=== PATIENT | male | born 1950 | race Caucasian/White ===

== ENCOUNTER 2018-03-25 16:02 | Inpatient (IN) | payer OTHER, MEDICARE ==
[~2018-03-25] VITALS: Ht 175.3 cm; Wt 76.2 kg
[2018-03-25 20:30] VITALS: BP 142/73
--- NOTE | 2018-03-25 20:30 | NUR ---
COLLATOR OPERATOR ADMITTING NOTES DIRECT ADMIT FROM EWING. RECEIVED PATIENT VIA GURNEY ACCOMPANIED AND TRANSFERRED TO BED BY 2 ROOM SERVICE RUNNER. PATIENT IS AWAKE ,ALERT AND ORIENTED X4, RESPIRATIONS EVEN AND UNLABORED, WITH EQUAL RISE AND FALL OF CHEST, ON COLLECTION TELLER SR AT 67. REGULAR. REYES CATHETER 18 FR. INTACT AND DRAINING WELL, URINE YELLOW IN COLOR. SKIN ASSESSED NOTED WITH RIGHT FOREHEAD LACERATION WITH SUTURES, NOSE AND SCALP SCAB, LEFT KNEE DISCOLORATION AND SACRAL REDNESS, PICTURES TAKEN PLACED IN CHART, RIGHT LACERATION SITE CLEANSED WITH NORMAL SALINE, DRY DRESSING APPLIED, NOTED SCANT SEROSANGUINEOUS TO SITE, NEW DRESSING REMAINS CLEAN AND INTACT. PATIENT IS NPO STATUS UPON ADMISSION. IV SITE TO LEFT WRIST #20 INTACT AND PATIENT, NO REDNESS, NO INFILTRATION PRESENT, MD AWARE OF ADMISSION WITH NEW ORDERS NOTED AND CARRIED OUT. PATIENT DENIES ANY COMPLAINT OF PAIN OF DISCOMFORT AT THIS TIME, SKIN CARE PROVIDED, BELONGINGS LIST DONE, PLACED IN GOWN, ORIENTED TO STAFF, AND CALL LIGHT, CALL LIGHT KEPT WITHIN REACH, SAFETY PRECAUTIONS MEASURED, WILL CONTINUE TO MONITOR, ALL NEEDS ATTENDED AT THIS TIME.
[2018-03-25] MEDS ORDERED: IV NS 0.9% 1,000 ML IV SCH (22:00)
[2018-03-25] MEDS ORDERED: ACETAMINOPHEN 650 MG/SUPP.RECT RC PRN (22:00)
[2018-03-25] MEDS ORDERED: ONDANSETRON HCL/PF 4 MG/2 ML VIAL IVP PRN (22:00)
[2018-03-25] MEDS ORDERED: MORPHINE SULFATE INJ 2 MG/ML DISP.SYRIN IV PRN (22:00)
[2018-03-25 22:39] LABS: BASOPHILS % (AUTO) 0.2 % (0.0-2.0); EOSINOPHILS % (AUTO) 2.3 % (0.0-6.0); HEMATOCRIT 48 % (39-51); HEMOGLOBIN 15.4 g/dL (13.5-17.5); LYMPHOCYTES # (AUTO) 0.9 /CMM (0.8-4.8); LYMPHOCYTES % (AUTO) 4.1 % (20.0-44.0); MEAN CORPUSCULAR HEMOGLOBIN 24 PG (26.0-33.0); MEAN CORPUSCULAR HGB CONC 32 g/dl (31.0-36.0); MEAN CORPUSCULAR VOLUME 74 fL (80-96); MONOCYTES # (AUTO) 0.5 /CMM (0.1-1.30); MONOCYTES % (AUTO) 2.4 % (2.0-12.0); NEUTROPHILS # (AUTO) 19.2 /CMM (1.8-8.9); PLATELET COUNT (AUTO) 868 /CMM (150-450); RED BLOOD CELL COUNT(AUTO) 6.51 MIL/uL (4.5-6.0); WHITE BLOOD COUNT (AUTO) 21.1 K/uL (4.3-11.0)
[2018-03-25 22:52] LABS: CALCIUM, SERUM 8.1 mg/dL (8.5-10.1); CREATININE 0.7 mg/dL (0.6-1.3)
[2018-03-25 22:58] LABS: ALBUMIN 3.5 g/dL (3.4-5.0); BILIRUBIN,TOTAL 1.2 mg/dL (0.2-1.0); PHOSPHORUS 3.1 mg/dL (2.5-4.9); TOTAL PROTEIN, SERUM 6.7 g/dL (6.4-8.2)
[2018-03-25 23:09] LABS: BAND % (MANUAL) 4 % (0.0-5.0); LYMPHOCYTES % (MANUAL) 4 % (16-48); NEUTROPHILS % (MANUAL) 88 (42-76)
[2018-03-25 23:10] LABS: MONOCYTES % (MANUAL) 4 % (0-11.0)
[2018-03-25 23:15] LABS: MAGNESIUM 1.2 mg/dL (1.8-2.4)
[2018-03-26] VITALS (7 sets, daily range): BP systolic 114–137; BP diastolic 64–81
[2018-03-26] MEDS ORDERED: PIPERACILLIN /TAZOBACTAM 3.375 G in IV D5W 50 ML IV SCH ×2
[2018-03-26] MEDS ORDERED: PIPERACILLIN /TAZOBACTAM 3.375 G VIAL IV ONE (00:31)
[2018-03-26] MEDS: Magnesium 1GM/D5W 100ML PREMIX 100 ML IV SCH ×4 (02:06→05:53)
[2018-03-26 03:03] LABS: APPEARANCE,URINE TURBID (CLEAR); BILIRUBIN,URINE 1+ (NEGATIVE); BLOOD, URINE 3+ Ery/uL (NEGATIVE); COLOR,URINE YELLOW (YELLOW); KETONES,URINE TRACE (NEGATIVE); LEUKOCYTE ESTERASE ,URINE TRACE (NEGATIVE); NITRITE, URINE NEGATIVE (NEGATIVE); PROTEIN,URINE 2+ mg/dl (NEGATIVE); UGLUCOSE NEGATIVE (NEGATIVE); UROBILINOGEN,URINE 0.2 EU/dL (0.2)
[2018-03-26 03:35] LABS: BACTERIA,URINE Few /HPF (None Seen); SQUAMOUS EPITHELIAL CELL,UR Rare /HPF (None Seen); URINE AMORPHOUS URATE Many /HPF (None Seen)
--- NOTE | 2018-03-26 06:31 | NUR ---
REPAIR ARMATURE WINDER CLOSING NOTES PATIENT IN BED AWAKE ALERT AND VERBALLY RESPONSIVE, RESPIRATIONS EVEN AND UNLABORED. WITH EQUAL RISE AND FALL OF CHEST. DENIES ANY COMPLAINTS OF PAIN OR DISCOMFORT AT THIS, LAST BAG OF MAG REPLACEMENT #4 RUNNING ORDERED. IV SITE TO LEFT WRIST INTACT AND PATENT, NO REDNESS, NO INFILTRATION PRESENT, REYES CATHETER INTACT AND DRAINING, ON CLEAR LIQUID DIET, FLUIDS OFFERED TOLERATED. ALL NEEDS ATTENDED AT THIS TIME, PATIENT REMAINS COMFORTABLE, SAFETY PRECAUTIONS RENDERED, ASKED PATIENT FOR SPUTUM COLLECTION , PER PATIENT HE DOES NOT HAVE ANY PHLEM. WILL CONTINUE TO MONITOR AND ENDORSE TO NEXT SHIFT.
[2018-03-26 07:36] LABS: CREATININE 0.9 mg/dL (0.6-1.3); MAGNESIUM 2.4 mg/dL (1.8-2.4); PHOSPHORUS 2.8 mg/dL (2.5-4.9); POTASSIUM 3.6 mmol/L (3.5-5.1)
[2018-03-26 07:46] LABS: BASOPHILS # (AUTO) 0.1 /CMM (0.0-0.2); BASOPHILS % (AUTO) 0.7 % (0.0-2.0); EOSINOPHILS % (AUTO) 4.2 % (0.0-6.0); HEMATOCRIT 50 % (39-51); HEMOGLOBIN 15.5 g/dL (13.5-17.5); LYMPHOCYTES # (AUTO) 1.3 /CMM (0.8-4.8); LYMPHOCYTES % (AUTO) 6.9 % (20.0-44.0); MEAN CORPUSCULAR HEMOGLOBIN 23 PG (26.0-33.0); MEAN CORPUSCULAR HGB CONC 31 g/dl (31.0-36.0); MEAN CORPUSCULAR VOLUME 74 fL (80-96); MONOCYTES # (AUTO) 0.5 /CMM (0.1-1.30); MONOCYTES % (AUTO) 2.8 % (2.0-12.0); NEUTROPHILS # (AUTO) 15.6 /CMM (1.8-8.9); NEUTROPHILS % (AUTO) 85.4 % (43.0-81.0); PLATELET COUNT (AUTO) 709 /CMM (150-450); RDW COEFFICIENT OF VARIATION 21.4 (11.5-15.0); RED BLOOD CELL COUNT(AUTO) 6.77 MIL/uL (4.5-6.0); WHITE BLOOD COUNT (AUTO) 18.3 K/uL (4.3-11.0)
[2018-03-26 07:52] LABS: THYROID STIMULATING HORMONE 2.739 uIU/mL (0.358-3.74)
--- NOTE | 2018-03-26 08:00 | NUR ---
RN NOTES PATIENT IN BED RESTING . PATIENT ALERT, ORIENTED X3 NO SOB OR ACUTE DISTRESS NOTED. BED IN LOW LOCKED POSITION. CALL LIGHT WITHIN REACH. PATIENT WITH REYES CATH INTACT PATENT AND PERIPHERAL IV ON LEFT WRIST INTACT PATIENT. WILL CONTINUE TO MONITOR.
--- NOTE | 2018-03-26 08:38 | NUR ---
WOUND CARE CONSULT: PT PRESENTS WITH SUTURED LACERATION TO FOREHEAD AND DRY ABRASION TO NOSE. RECOMMENDATIONS MADE FOR SKIN PROTECTION. PT INDEPENDENT WITH BED MOBILITY. AMY NOTED. WILL SEE PRN. BOYD IN AGREEMENT WITH PLAN OF CARE. Addendum: 03/26/18 at 0839 by YESIKA BLOUNT WNDNU Amended: Links added.
[2018-03-26] MEDS ORDERED: PANTOPRAZOLE 40 MG VIAL IV SCH (09:00)
[2018-03-26] MEDS ORDERED: PANTOPRAZOLE 40 MG TABLET.DR PO SCH ×2 (09:00→17:00)
[2018-03-26] MEDS ORDERED: TAMSULOSIN 0.4 MG CAP.SR.24H PO SCH (10:00)
[2018-03-26] MEDS ORDERED: CARV6.25 PO (10:07)
[2018-03-26] MEDS ORDERED: LORA-258 PO (10:07)
[2018-03-26] MEDS ORDERED: FURO-145 PO (10:07)
[2018-03-26] MEDS ORDERED: PANT40TA4 PO (10:11)
[2018-03-26] MEDS ORDERED: LISI2.5T2 PO (10:11)
[2018-03-26] MEDS ORDERED: ASPI-1169 PO (10:11)
[2018-03-26 11:08] LABS: EOSINOPHILS % (MANUAL) 7 % (0-4); LYMPHOCYTES % (MANUAL) 7 % (16-48); MONOCYTES % (MANUAL) 4 % (0-11.0); NEUTROPHILS % (MANUAL) 82 (42-76)
[2018-03-26] MEDS ORDERED: PIPERACILLIN /TAZOBACTAM 4.5 G in IV NS 0.9% 50 ML IV SCH (12:00)
[2018-03-26] MEDS: PIPERACILLIN /TAZOBACTAM 3.375 G in IV D5W 50 ML IV SCH ×3 (13:14→23:09)
--- NOTE | 2018-03-26 13:50 | NUR ---
BUSINESS SUPPORT ASSISTANT NOTES PATIENT NOTED WITH ANOTHER EPISODE OF V TAC. PATIENT STATES HE FELT HIS HEART BEATING FAST. PATIENT ALERT, ORIENTEDX3. DENIES ANY PAIN. HERIBERTO AYOUB NOTIFIED, AT BEDSIDE EVALUATING PATIENT. WILL CONTINUE TO MONITOR. Addendum: 03/26/18 at 1452 by DANIAL BOJORQUEZ RN ERROR IN CHARTING. WRONG PATIENT
--- NOTE | 2018-03-26 13:55 | NUR ---
SLURRY CONTROL TENDER NOTES ORDERS TO TRANSFER PATIENT TO ICU WITH AMIODARONE DRIP. PATIENT WITH VS WNL. NO SOB OR ACUTE DISTRESS NOTED. PATIENT ALERT, ORIENTED X3. AT BEDSIDE. REPORT GIVEN TO YESSICA MURPHY AT BEDSIDE AT ICU PATIENT TRANSFERRED TO ROOM 257. Addendum: 03/26/18 at 1452 by DANIAL BOJORQUEZ RN ERROR IN CHARTING WRONG PATIENT.
--- NOTE | 2018-03-26 15:10 | NUR ---
Social service consult requested by BA Pearl for ETOH abuse. Pt. is a 67 year old male who was admitted to [facility] for sepsis. SW met with pt. bedside. Pt. is alert and oriented x 4. Pt. was pleasant and cooperative with SW during the assessment. Pt. lives with his mother at [address] [place] [address], [place] [address]. Pt. is an alcohol and drinks approximately 1 to 2 bottles of vodka per day. Pt. has been drinking for the past 30 years. Pt. has been sober in the past for 10 years. Pt. attended an alcohol treatment program at [facility] on [address] in [place] about a year ago but did not complete due to the program being too strict for him. Pt. states, he had to take 5 one hour classes in the morning and and 5 one hour classes in the evening. Pt. felt it was too much to handle. SW offered pt. alcohol treatment program referrals, however pt. declined stating he doesn't want to go back to rehab and he is knowledgeable about alcohol resources. SW encouraged pt. to go to treatment. Pt receives $900/ month in SSI. No other social service needs are requested at this time. SW is available, if needed.
[2018-03-26] MEDS ORDERED: LORAZEPAM 0.5 MG TABLET PO PRN (17:00)
[2018-03-26] MEDS: ASPIRIN 81 MG TAB.CHEW PO SCH (17:26)
[2018-03-26] MEDS: FUROSEMIDE 20 MG TABLET PO SCH (17:26)
[2018-03-26] MEDS: CARVEDILOL 6.25 MG TABLET PO SCH (17:28)
--- NOTE | 2018-03-26 19:45 | NUR ---
RN INITIAL NOTE PT IS IN BED AWAKE AND ALERT, ABLE TO MAKE NEEDS KNOWN WITH MOTHER AT BEDSIDE. NO SIGN SOF SOB OR DISTRESS, BREATHING EVENLY AND UNLABORED ON RA. IV ACCESS IS INTACT AND PATENT. HEAD LACERATION NOTED. REYES CATHETER IS INTACT AND PATENT. BED IS IN LOW ADN LOCKED POSITION, CALL LIGHT WITHIN REACH. WILL CONTINUE TO MONITOR PT.
[2018-03-26] MEDS ORDERED: LIDOCAINE 2% JEL 5 ML TUBE MC ONE (20:00)
--- NOTE | 2018-03-26 20:00 | NUR ---
RN NOTES PATIENT IN BED RESTING NO SOB OR ACUTE DISTRESS NOTED. ALL DUE MEDICATIONS ADMINISTERED. ALL NEEDS MET. WILL ENDORSE TO PM SHIFT SIMI.
[2018-03-26] MEDS: TAMSULOSIN 0.4 MG CAP.SR.24H PO SCH (21:08)
[2018-03-26] MEDS: MORPHINE SULFATE INJ 4 MG/ML DISP.SYRIN IV PRN (23:15)
[2018-03-27] VITALS: BP 123/80
[2018-03-27] MEDS: ACETAMINOPHEN 325 MG TABLET PO PRN ×3 (00:51→13:49)
[2018-03-27 04:00] VITALS: BP 98/59
[2018-03-27] MEDS: PIPERACILLIN /TAZOBACTAM 3.375 G in IV D5W 50 ML IV SCH ×4 (05:01→23:53)
--- NOTE | 2018-03-27 06:32 | NUR ---
RN CLOSING NOTE PT IS IN BED RESTING. NO SIGNS OF SOB OR DISTRESS. REYES IS INTACT AND DRAINING. ALL NEEDS WERE ANTICIPATED AND MET. BED IS IN LOW AND LOCKED POSITION, CALL LIGHT WITHIN REACH. WILL ENDORSE TO DAYSHIFT.
[2018-03-27] MEDS: PANTOPRAZOLE 40 MG TABLET.DR PO SCH (06:49)
--- NOTE | 2018-03-27 07:30 | NUR ---
RN NOTES PATIENT A/OX3, VERBALLY RESPONSIVE, PATIENT C/O RIGHT FOOT PAIN, BUT ABLE TO TOLERATE PAIN AT THIS TIME, AND HE THINKS ITS GOUT. RIGHT FOOT APPEARS TO BE RED AND SLIGHTLY SWOLLEN. TYLENOL WAS JUST ADMINISTERED 2 HOURS AGO. PIV ON LEFT WRIST, PATENT AND INTACT, REYES CATHETER DRAINING WITH DARK YELLOW URINE. MOTHER AT BEDSIDE SLEEPING, NEEDS ATTENDED AND MET, CALL LIGHT WITHIN REACH, WILL CONTINUE TO MONITOR.
[2018-03-27 08:00] VITALS: BP 98/57
[2018-03-27] MEDS: ASPIRIN 81 MG TAB.CHEW PO SCH (08:30)
[2018-03-27] MEDS: FUROSEMIDE 20 MG TABLET PO SCH (08:30)
[2018-03-27] MEDS: CARVEDILOL 6.25 MG TABLET PO SCH ×2 (08:31→16:13)
[2018-03-27] MEDS: LISINOPRIL (5MG) 5 MG TABLET PO SCH (08:31)
[2018-03-27] MEDS ORDERED: ERGOCALCIFEROL (VITAMIN D 2) 50,000 UNIT CAPSULE PO SCH (09:30)
[2018-03-27 11:09] LABS: BASOPHILS # (AUTO) 0.1 /CMM (0.0-0.2); BASOPHILS % (AUTO) 0.5 % (0.0-2.0); EOSINOPHILS % (AUTO) 4.2 % (0.0-6.0); HEMATOCRIT 48 % (39-51); HEMOGLOBIN 15.3 g/dL (13.5-17.5); LYMPHOCYTES # (AUTO) 0.8 /CMM (0.8-4.8); LYMPHOCYTES % (AUTO) 4.8 % (20.0-44.0); MEAN CORPUSCULAR HEMOGLOBIN 24 PG (26.0-33.0); MEAN CORPUSCULAR HGB CONC 32 g/dl (31.0-36.0); MEAN CORPUSCULAR VOLUME 74 fL (80-96); MONOCYTES # (AUTO) 0.5 /CMM (0.1-1.30); MONOCYTES % (AUTO) 3.1 % (2.0-12.0); NEUTROPHILS # (AUTO) 15.3 /CMM (1.8-8.9); NEUTROPHILS % (AUTO) 87.4 % (43.0-81.0); PLATELET COUNT (AUTO) 677 /CMM (150-450); RDW COEFFICIENT OF VARIATION 20.6 (11.5-15.0); WHITE BLOOD COUNT (AUTO) 17.5 K/uL (4.3-11.0)
[2018-03-27 11:20] LABS: CALCIUM, SERUM 7.8 mg/dL (8.5-10.1); CREATININE 1.1 mg/dL (0.6-1.3); POTASSIUM 3.4 mmol/L (3.5-5.1)
[2018-03-27 12:00] VITALS: BP 119/76
[2018-03-27 12:38] LABS: EOSINOPHILS % (MANUAL) 5 % (0-4); LYMPHOCYTES % (MANUAL) 3 % (16-48); MONOCYTES % (MANUAL) 2 % (0-11.0); NEUTROPHILS % (MANUAL) 90 (42-76)
[2018-03-27] MEDS: IBUPROFEN 600 MG TABLET PO PRN (12:43)
[2018-03-27] MEDS: COLCHICINE 0.6 MG TABLET PO SCH (12:43)
--- NOTE | 2018-03-27 12:47 | NUR ---
RN NOTES PATIENT SEEN BY DR. LOPEZ, INSTRUCTED TO REMOVE REYES CATH AND DO A VOIDING TRIAL. REYES CATHETER REMOVED, PATIENT TOLERATED PROCEDURE WELL, PATIENT'S URINE BAG SHOWS 2300ML OF URINE OUTPUT. WILL CONTINUE TO MONITOR.
[2018-03-27] MEDS ORDERED: POTASSIUM CHLORIDE 20 MEQ TAB.PRT.SR PO SCH (14:30)
[2018-03-27] MEDS: CHOLECALCIFEROL 1,000 UNIT TABLET (VIT D3) PO SCH (15:04)
[2018-03-27 16:00] VITALS: BP 119/75
--- NOTE | 2018-03-27 18:50 | NUR ---
RN NOTES PATIENT A/OX3, BREATHING EVEN AND UNLABORED, STILL C/O MILD PAIN ON RIGHT FOOT, TOLERABLE AT THIS TIME. PATIENT'S PIV ON RFA #22, PATENT AND INTACT, PATIENT VOIDING TRIAL SUCCESSFUL, PATIENT WAS ABLE TO URINATE IN THE URINAL. PATIENT IS INDEPENDENT WITH BED MOBILITY, ASSISTED WITH ADLS, NEEDS ATTENDED AND MET, POTASSIUM REPLACED, CALL LIGHT WITHIN REACH, WILL ENDORSE TO FRAME HAND FOR SIMI.
--- NOTE | 2018-03-27 18:55 | NUR ---
RN NOTES DR. LOPEZ MADE AWARE OF LAB RESULTS, RECEIVED ORDER FOR MAGNESIUM. ORDER NOTED AND CARRIED OUT. PATIENT IN BED, SLEEPING BUT EASILY AROUSABLE, PATIENT'S O2 AT 4LPM VIA NC WITH SPO2 STILL RANGES FROM 80-100%, BUT SHORTNESS OF BREATH HAS IMPROVED, DR. LOPEZ AWARE. PATIENT RECEIVED HEMODIALYSIS TREATMENT TODAY WITH 3L OUTPUT. PATIENT'S WOUND TREATMENT DONE ON RLE. BUT PATIENT REFUSED ADL CARE, SKIN CARE, AND LINEN CHANGE, HE PREFERS TO HAVE HIS OWN BLANKETS. PATIENT IS INDEPENDENT WITH BED MOBILITY, JUST NEEDS ENCOURAGEMENT, PATIENT RE-EDUCATED ON SKIN MANAGEMENT. ALSO PATIENT'S SATURATION DROPS WITH ANY ACTIVITY, THEREFORE PATIENT KEPT IN A COMFORTABLE POSITION AT THIS TIME, HEAD OF BED ELEVATED. NEEDS ATTENDED AND MET, CALL LIGHT WITHIN REACH, WILL ENDORSE TO COMPUTER ASSEMBLER FOR SIMI. Addendum: 03/27/18 at 1901 by HEVER WHITT RN ADDENDUM: INCORRECT ENTRY, WRONG PATIENT, PLEASE DISREGARD
--- NOTE | 2018-03-27 19:10 | NUR ---
MS/PEDIATRIC PHYSICAL THERAPIST; RECEIVED PT'S REPORTS FROM THE THE DAY SHIFT RN FOR CONTINUITY OF CARE. AT THIS TIME PT IN BED SLEEPING. BREATHING NON LABORED. HL ON RFA INTACT. SIDE RAILS ARE UP FOR S AFETY. BED ON LOWER POSITION AND LOCKED FOR SAFETY. WILL CONTINUE TO MONITOR. CALL LIGHT AND URINAL WITHIN REACH.
[2018-03-27 20:00] VITALS: BP 109/66
[2018-03-27] MEDS: TAMSULOSIN 0.4 MG CAP.SR.24H PO SCH (21:40)
--- NOTE | 2018-03-27 22:00 | NUR ---
MS/ERGONOMICS ENGINEER; PT AWAKE AND WENT O HE BATHROOM WITH LOCAL COORDINATOR'S HELP ; PT WAS INSTRUCTED TO USE THE URINAL FOR VOIDING TO MONITOR URINE OUTPUT BUT PER LOCAL COORDINATOR PT DID NOT USED BECAUSE PT WITH BM. PT VOIDED.
--- NOTE | 2018-03-28 03:30 | NUR ---
MS/DERRICK BOAT CAPTAIN; PT WENT BRP WITH SUSTAINABLE DESIGN COORDINATOR'S ASSIST PT INSTRUCTED TO USE URINAL BUT STILL DID NOT USE IT ; PT VOIDED PER SUSTAINABLE DESIGN COORDINATOR'S STATEMENT AND ALSO WITH BM.
--- NOTE | 2018-03-28 03:45 | NUR ---
MS/SPINDLE SETTER; SPUTUM SPECIMEN OBTAINED AND PUT IN THE FLOOR FRIDGE. I CALLED THE LAB. TO ROTOR WINDER THE SPECIMEN AND A MALE LAB. TECH SAID HE WILL ROTOR WINDER.
[2018-03-28] MEDS: PIPERACILLIN /TAZOBACTAM 3.375 G in IV D5W 50 ML IV SCH ×4 (05:44→23:02)
--- NOTE | 2018-03-28 05:55 | NUR ---
MS/CORONER; PT C/O PAIN BOTH FEET. BP 122/ 74, TX 67 AND WANTS PAIN PILL. MOTRIN 600 MG 1 TAB. PO Q6 PRN GIVEN WITH FOOD.
[2018-03-28] MEDS: IBUPROFEN 600 MG TABLET PO PRN ×2 (05:57→17:50)
[2018-03-28 06:45] LABS: POTASSIUM 3.5 mmol/L (3.5-5.1)
--- NOTE | 2018-03-28 07:00 | NUR ---
MS/SHARE HOLDER; SLEPT FAIRLY. BREATHING NON LABORED. WILL CONTINUE TO MONITOR. CALL LIGHT WITHIN REACH. WILL ENDORSE TO THE DAY SHIFT RN FOR CONTINUITY OF CARE.
--- NOTE | 2018-03-28 07:25 | NUR ---
RN INITIAL NOTES: PATIENT RESTING IN BED. NONLABORED BREATHING NOTED ON ROOM AIR. PATIENT AOX3. DENYING PAIN AT THE MOMENT. IV SITE ON RIGHT FOREARM GAUGE 22 PATENT AND INTACT. BED IN LOWEST LOCKED POSITION. CALL LIGHT WITHIN REACH. FALL PRECAUTIONS IMPLEMENTED
[2018-03-28 08:28] LABS: BASOPHILS % (AUTO) 0.3 % (0.0-2.0); HEMATOCRIT 47 % (39-51); HEMOGLOBIN 14.7 g/dL (13.5-17.5); LYMPHOCYTES # (AUTO) 1.1 /CMM (0.8-4.8); LYMPHOCYTES % (AUTO) 6.3 % (20.0-44.0); MEAN CORPUSCULAR HEMOGLOBIN 24 PG (26.0-33.0); MEAN CORPUSCULAR HGB CONC 32 g/dl (31.0-36.0); MEAN CORPUSCULAR VOLUME 74 fL (80-96); MONOCYTES # (AUTO) 0.6 /CMM (0.1-1.30); NEUTROPHILS # (AUTO) 15.7 /CMM (1.8-8.9); NEUTROPHILS % (AUTO) 86.4 % (43.0-81.0); PLATELET COUNT (AUTO) 655 /CMM (150-450); RDW COEFFICIENT OF VARIATION 21.2 (11.5-15.0); RED BLOOD CELL COUNT(AUTO) 6.26 MIL/uL (4.5-6.0); WHITE BLOOD COUNT (AUTO) 18.2 K/uL (4.3-11.0)
[2018-03-28] MEDS: PANTOPRAZOLE 40 MG TABLET.DR PO SCH (08:39)
[2018-03-28 08:53] LABS: EOSINOPHILS % (MANUAL) 3 % (0-4); LYMPHOCYTES % (MANUAL) 6 % (16-48); MONOCYTES % (MANUAL) 2 % (0-11.0); NEUTROPHILS % (MANUAL) 89 (42-76)
[2018-03-28] MEDS: CARVEDILOL 6.25 MG TABLET PO SCH ×2 (09:00→17:00)
[2018-03-28] MEDS: LISINOPRIL (5MG) 5 MG TABLET PO SCH (09:00)
[2018-03-28 09:19] VITALS: BP 105/58
[2018-03-28] MEDS: CHOLECALCIFEROL 1,000 UNIT TABLET (VIT D3) PO SCH (09:25)
[2018-03-28] MEDS: COLCHICINE 0.6 MG TABLET PO SCH (09:25)
[2018-03-28] MEDS: ASPIRIN 81 MG TAB.CHEW PO SCH (09:25)
--- NOTE | 2018-03-28 11:42 | NUR ---
PATIENT REFUSING MEPLIX DRESSING ORDERED. SUTURES INTACT. NO DRAINAGE NOTED ON WOUND ON FOREHEAD BENEFITS AND RISKS EXPLAINED TO PATIENT AT LEGTH
[2018-03-28 16:17] VITALS: BP 121/76
--- NOTE | 2018-03-28 18:30 | NUR ---
MS RN CLOSING NOTES PATIENT AOX3. PATIENT STATES THAT PAIN IS ALLEVIATED AFTER IBUPROFEN. NO SOB OR DISTRESS NOTED, CALL LIGHT WITHIN REACH. IV SITE PATENT AND INTACT. SAFETY MEASURES IMPLEMENTED. WILL ENDORSE TO NEXT SHIFT
--- NOTE | 2018-03-28 19:27 | NUR ---
MS RN OPENING NOTE RECEIVE PATIENT AWAKE IN BED, A/O X 4, STABLE NO FACIAL GRIMACING NOTED FOR PAIN. NO SOB OR DISTRESS NOTED, CALL LIGHT WITHIN REACH. SAFETY MEASURES IMPLEMENTED. WILL CONTINUE TO MONITOR THROUGHOUT SHIFT.
[2018-03-28 20:00] VITALS: BP 121/72
[2018-03-28] MEDS: MORPHINE SULFATE INJ 4 MG/ML DISP.SYRIN IV PRN (20:02)
[2018-03-28] MEDS: TAMSULOSIN 0.4 MG CAP.SR.24H PO SCH (21:36)
[2018-03-29] MEDS: PIPERACILLIN /TAZOBACTAM 3.375 G in IV D5W 50 ML IV SCH ×2 (05:01→11:55)
--- NOTE | 2018-03-29 06:19 | NUR ---
MS RN CLOSING NOTES PT COMFORTABLY ASLEEP AND EASILY AWAKEN, A/O X 4, IN STABLE CONDITION. RESPIRATION EVEN AND UNLABORED. KEPT CLEAN AND DRY AND COMFORTABLE, ALL NURSING CARE RENDERED. NEEDS ATTENDED AND ANTICIPATED, GOOD SKIN CARE PROVIDED. FREQUENT VISUAL CHECK DONE FOR SAFETY EVERY 2 HOURS. ON LOW BED AT ALL TIMES TO ENSURE SAFETY. SAFE HAZARD FREE ENVIRONMENT PROVIDED. NO COMPLAINS OF PAIN. ASSIST REPOSITION EVERY 2 HOURS. CALL LIGHT WITHIN EASY TO REACH. WILL ENDORSE NEXT SHIFT CONTINUITY OF CARE. NO COMPLAINS OF PAIN.
--- NOTE | 2018-03-29 07:43 | NUR ---
MS RN OPENING NOTES RECEIVED PT FROM NIGHTSHIFT NURSE IN STABLE CONDITION. PT IS A/O X3. NO SOB OR SIGNS OF DISTRESS NOTED. BREATHING IS EVEN AND UNLABORED. PT ON RA AND SATING WELL. HE DENIES ANY PAIN AT THIS TIME. IV TO RIGHT FA NOTED TO BE PATENT AND INTACT. NO REDNESS OR SIGNS OF INFILTRATION NOTED. BED IN LOW LOCKED POSITION, SIDE RAILS UP X2, CALL LIGHT WITHIN REACH. WILL CONTINUE TO MONITOR
[2018-03-29 08:00] VITALS: BP 138/74
[2018-03-29] MEDS: PANTOPRAZOLE 40 MG TABLET.DR PO SCH (09:01)
[2018-03-29] MEDS: CHOLECALCIFEROL 1,000 UNIT TABLET (VIT D3) PO SCH (09:01)
[2018-03-29] MEDS: LISINOPRIL (5MG) 5 MG TABLET PO SCH (09:02)
[2018-03-29 09:03] VITALS: BP 138/74
[2018-03-29] MEDS: ASPIRIN 81 MG TAB.CHEW PO SCH (09:03)
[2018-03-29] MEDS: CARVEDILOL 6.25 MG TABLET PO SCH (09:03)
[2018-03-29] MEDS: COLCHICINE 0.6 MG TABLET PO SCH (09:03)
[2018-03-29 09:54] LABS: BASOPHILS % (AUTO) 0.2 % (0.0-2.0); HEMATOCRIT 46 % (39-51); HEMOGLOBIN 14.7 g/dL (13.5-17.5); LYMPHOCYTES % (AUTO) 7.2 % (20.0-44.0); MEAN CORPUSCULAR HEMOGLOBIN 24 PG (26.0-33.0); MEAN CORPUSCULAR HGB CONC 32 g/dl (31.0-36.0); MEAN CORPUSCULAR VOLUME 74 fL (80-96); MONOCYTES # (AUTO) 0.3 /CMM (0.1-1.30); MONOCYTES % (AUTO) 2.2 % (2.0-12.0); NEUTROPHILS # (AUTO) 11.2 /CMM (1.8-8.9); NEUTROPHILS % (AUTO) 84.4 % (43.0-81.0); PLATELET COUNT (AUTO) 726 /CMM (150-450); RDW COEFFICIENT OF VARIATION 21.2 (11.5-15.0); RED BLOOD CELL COUNT(AUTO) 6.25 MIL/uL (4.5-6.0); WHITE BLOOD COUNT (AUTO) 13.3 K/uL (4.3-11.0)
[2018-03-29 10:21] LABS: EOSINOPHILS % (MANUAL) 1 % (0-4); LYMPHOCYTES % (MANUAL) 6 % (16-48); MONOCYTES % (MANUAL) 2 % (0-11.0); NEUTROPHILS % (MANUAL) 91 (42-76)
--- NOTE | 2018-03-29 13:13 | NUR ---
MS MARKER HAND NOTES PT WAS DISCHARGED FROM FACILITY IN STABLE CONDITION. ALL NEEDS WERE MET DURING SHIFT AND ORDERS CARRIED OUT ACCORDINGLY. ALL DUE MEDS GIVEN. WOUND AND SKIN CARE RENDERED. AM CARE RENDERED. IV WAS SUCCESSFULLY REMOVED WITH CATHETER TIP INTACT. D/C EDUCATION PROVIDED UTILIZING EXIT CARE MATERIALS. D/C PHOTOS TAKEN AND PLACED IN PT'S CHART. PT REMINDED OF F/U APPOINTMENTS WITH TRANSITIONAL [facility]ARE CLINIC AND WOUND CLINIC. HE WAS ALSO GIVEN A WRITTEN PRESCRIPTION COMPLETED BY THE MD. ALL D/C PAPERWORK SIGNED BY PT AND COPIES PLACED IN CHART. HE WAS SAFELY ESCORTED TO THE LOBBY BY THE TABLET MAKING MACHINE OPERATOR HELPER AND LEFT VIA TAXI IN STABLE CONDITION
== END 2018-03-29 14:00 | disposition home or self-care (01) | DRG 501 ==
LOC: MED 16:02 → TELE 20:46 → MED 03-27 19:10
PROVIDERS: ADMIT Family Medicine; ATTEND Family Medicine
DX: N40.0 Benign prostatic hyperplasia without lower urinary tract symptoms (principal); G72.1 Alcoholic myopathy; N13.30 Unspecified hydronephrosis; I11.0 Hypertensive heart disease with heart failure; I50.32 Chronic diastolic (congestive) heart failure; C94.6 Myelodysplastic disease, not elsewhere classified; N13.8 Other obstructive and reflux uropathy; N39.0 Urinary tract infection, site not specified; M48.54XA Collapsed vertebra, not elsewhere classified, thoracic region, initial encounter for fracture; D75.89 Other specified diseases of blood and blood-forming organs; Z98.890 Other specified postprocedural states; Z90.49 Acquired absence of other specified parts of digestive tract; F10.10 Alcohol abuse, uncomplicated; E83.42 Hypomagnesemia; Z96.642 Presence of left artificial hip joint; S01.91XA Laceration without foreign body of unspecified part of head, initial encounter; W19.XXXA Unspecified fall, initial encounter; Y92.009 Unspecified place in unspecified non-institutional (private) residence as the place of occurrence of the external cause; M10.9 Gout, unspecified
CPT/HCPCS: 36415; 71045-TC; 80048-TC; 80053-TC; 80061-TC; 81000-TC; 82306; 83605-TC; 83690-TC; 83735-TC; 84100-TC; 84439-TC; 84443-TC; 84550-TC; 85025-TC; 87040-TC; 87070-TC; 87081-TC; 87086-TC; 93307-TC; A4216; A6402; J2270; J2405; J2543; J3475; J7030; J7060; Z7610